=== PATIENT | male | born 1990 | race Caucasian/White ===

== ENCOUNTER 2017-02-22 15:47 | Emergency (ER) | payer MEDICAID ==
--- NOTE | 2017-02-22 16:07 | ED Physician Chart ---
ED Chief Complaint/HPI - Patient Information Date Seen:: 02/22/17 Time Seen:: 16:55 Chief Complaint:: Chest pain for 2 days. History of Present Illness:: Pt came by private auto because of onset of R sided chest pain for 2 days. Pain is characterized as intermittent, sharp, localized. Pain has become constant since about 4 am today. No known injury or trauma. No dyspnea. No cough. No palpitation. No lightheadedness. No syncope. Chest pain can be aggravated with deep inspiration or chest wall movement. Pt does not recall any chest injury. Pt is physically active and has no physical limitation. Allergies:: Allergies Allergy/AdvReac Type Severity Reaction Status Date / Time No Known Allergies Allergy Verified 02/22/17 15:56 Vitals:: Vital Signs - 8 hr 02/22/17 15:57 Temp 98.6 F HR 89 RR 18 BP 123/76 O2 Sat % 98 Historian:: Patient Family MD/PCP:: Unknown LMP:: N/A Review:: Nurse's Note Reviewed ED Review of Systems - Review of Systems General/Constitutional: No fever, No weight loss, No weakness, No edema, No loss of appetite Skin: No rash, No bruising Head: No headache, No light-headedness Eyes: No loss of vision, No pain, No diplopia ENT: No earache, No nasal drainage, No sore throat Neck: No neck pain, No swelling, No thyromegaly, No stiffness, No mass noted Cardio Vascular: Chest pain (more consistent with noncardiac in etiology.), No palpitations, No edema Pulmonary: No SOB, No cough, No wheezing GI: No nausea, No vomiting, No diarrhea, No pain G/U: No dysuria, No frequency, No hematuria Musculoskeletal: Other (chest wall pain.) Psychiatric: No prior psych history Hematopoietic: Bruising Allergic/Immuno: No urticaria, No angioedema Neurological: No syncope, No focal symptoms, No weakness, No paresthesia, No headache, No dizziness, No confusion ED Past Medical History - Past Medical History Past Medical History: No significant medical hx Family History: Heart disease (father), Diabetes Melitus (father), HTN (father) Social History: Non Smoker, Alcohol (occasional), No Drug Use, , Employed (safety security officer.), Other (lives with his significant other.) Family Medical History - Family Member Mother History Unknown: Yes ED Physical Exam - Physical Examination General/Constitutional: Awake, Well-developed, well-nourished, Alert, No distress, GCS 15, Non-toxic appearing, Ambulatory Other Gen/Cons comments:: Breathes comfortably, speaks clearly, and interacts normlly Head: Atraumatic Eyes: Lids, conjuctiva normal, PERRL, EOMI Skin: Nl inspection, No rash, No skin lesions, No ecchymosis, Well hydrated, No lymphadenopathy ENMT: External ears, nose nl, Nasal exam nl, Lips, teeth, gums nl, Oropharynx nl Neck: Nontender, Full ROM w/o pain, No JVD, No nuchal rigidity, No mass, No stridor Respiratory: Nl effort/Exclusion, Clear to Auscultation, No Wheeze/Rhonchi/Rales Cardio Vascular: RRR, No murmur, gallop, rubs, NL S1 S2 Other Cardio Vascular comments:: Chest wall: Reproducible tenderness with palpation at R lower parasternal region at the costosternal junctures. Pt states that it is exactly the same pain that he has experienced. No crepitus, erythema, swelling or open wound. GI: No tenderness/rebounding/guarding, No organomegaly, No hernia, Normal BS's, Nondistended, No McBurney tenderness Extremities: No edema Neuro/Psych: Alert/oriented (oriented x 3), Mood normal, Normal gait, No focal deficits ED Labs/Radiology/EKG Results - Lab Results Results: Laboratory Tests 02/22/17 02/22/17 02/22/17 16:25 16:25 16:25 WBC 8.1 RBC 4.65 Hgb 14.1 Hct 40.7 L MCV 87.5 MCH 30.3 H MCHC Differential 34.7 RDW 14.0 Plt Count 183 MPV 8.1 Neutrophils % 58.5 Lymphocytes % 29.4 Monocytes % 11.4 H Eosinophils % 0.7 Basophils % 0.0 PT 9.8 INR 0.94 PTT (Actin FS) 22.8 L Sodium 137 Potassium 3.6 Chloride 105 Carbon Dioxide 27.2 Anion Gap 8.4 BUN 21 Creatinine 1.0 Est GFR ( Amer) > 60.0 Est GFR (Non-Af Amer) > 60.0 BUN/Creatinine Ratio 21.0 Glucose 86 Calcium 8.9 Total Bilirubin 0.4 AST 20 ALT 14 Alkaline Phosphatase 61 Creatine Kinase 196 Troponin I Total Protein 6.9 Albumin 4.2 Globulin 2.7 Albumin/Globulin Ratio 1.6 02/22/17 16:25 WBC RBC Hgb Hct MCV MCH MCHC Differential RDW Plt Count MPV Neutrophils % Lymphocytes % Monocytes % Eosinophils % Basophils % PT INR PTT (Actin FS) Sodium Potassium Chloride Carbon Dioxide Anion Gap BUN Creatinine Est GFR ( Amer) Est GFR (Non-Af Amer) BUN/Creatinine Ratio Glucose Calcium Total Bilirubin AST ALT Alkaline Phosphatase Creatine Kinase Troponin I 0.01 Total Protein Albumin Globulin Albumin/Globulin Ratio - Radiology Results Results: PCXR: Based on my interpretation, NAD. Official report is pending. - EKG Interpretations EKG Time:: 17:55 Rate & Rhythm: NSR with VR 86 Comments:: NSSTT changes. ED Septic Shock - . Is Septic Shock (SBP<90, OR Lactate>4 mmol\L) present?: No - <6hrs of presentation: Vital Signs: Vital Signs - 8 hr 02/22/17 15:57 Temp 98.6 F HR 89 RR 18 BP 123/76 O2 Sat % 98 ED Reassessment (Disposition) - Reassessment Reassessment:: 1830 Pt has been repeatedly evaluated. Pt feels much better and does not need more pain control. Lab, EKG, and CXR findings have been reviewed with pt. Pt requests to go home now and does not want further observation/management in hospital. Aftercare instructions have been given. Reassessment Condition:: Improved - Diagnosis Diagnosis:: Noncardiac right sided chest wall pain due to costochondritis, stable and improved. - Aftercare/Follow up Instructions Aftercare/Follow-Up Instructions:: Refer to Discharge Instructions Notes:: Avoid activities that increase chest wall motion Motrin 200 mg tab 4 tabs po q8h prn noncardiac chest pain, not to take first dose at least 6 hours after Toradol was given here. May also take Tylenol 500 mg tab one tab po q6h prn pain. F/U with Dr. Rogers or PCP of pt's choice in 1-2 days for recheck. Return to ER immediately if condition worsens or if any further questions/problems. Medication Prescribed:: None - Patient Disposition Discharge/Transfer:: Home Time:: 18:40 Condition at Disposition:: Stable, Improved ED Discharge Plan - Patient Disposition Admit/Discharge/Transfer: PT DISCHARGED HOME Condition at Disposition: Stable Instructions: Costochondritis, [id number] Accepting Physician: Bj Rogers [Active] - 1-3 Days
[2017-02-22 16:31] LABS: % EOSINOPHILS 0.7 % (0.0-5.0); % LYMPHOCYTES 29.4 % (20.0-50.0); % MONOCYTES 11.4 % (2.0-10.0); % NEUTROPHILS 58.5 % (40.0-80.0); HEMATOCRIT 40.7 % (41.0-60); HEMOGLOBIN 14.1 gm/dL (12-16); MEAN CELL VOLUME 87.5 fl (80-99); MEAN CORPUSCULAR HEMOGLOBIN 30.3 pg (26.0-30.0); MEAN CORPUSCULAR HGB CONC 34.7 pg (28.0-36.0); MEAN PLATELET VOLUME 8.1 fl; NEUTROPHILE ABSOLUTE 4.7 Th/cmm (1.8-8.0); PLATELET COUNT 183 Th/cmm (150-400); RED BLOOD COUNT 4.65 Mil/cmm (4.30-5.70); WHITE BLOOD COUNT 8.1 Th/cmm (4.8-10.8)
[2017-02-22 16:44] LABS: INR 0.94 (0.5-1.4); PROTHROMBIN TIME (TEST) 9.8 SECONDS (9.5-11.5)
[2017-02-22 16:49] LABS: ALB/GLOB RATIO 1.6 (1.0-1.8); ALKALINE PHOSPHATASE 61 U/L (34-104); ANION GAP 8.4 (7.0-16.0); BILIRUBIN,TOTAL 0.4 mg/dL (0.3-1.0); BUN - UREA NITROGEN 21 mg/dL (7-25); CALCIUM SERUM 8.9 mg/dL (8.6-10.3); CARBON DIOXIDE 27.2 mEq/L (21.0-31.0); CHLORIDE 105 mEq/L (98-107); GLUCOSE 86 mg/dL (70-105); POTASSIUM SERUM 3.6 mEq/L (3.5-5.1); SGOT 20 U/L (13-39); SGPT/ALT 14 U/L (7-52); SODIUM SERUM 137 mEq/L (136-145)
--- NOTE | 2017-02-23 07:08 | Diagnostic Imaging Report ---
Portable chest x-ray Time: 1708 History: Chest pain Allowing for portable technique the heart size is normal. No focal pulmonary parenchymal processes. No hilar or mediastinal abnormalities. Impression: No acute abnormalities.
== END 2017-02-22 18:45 | disposition home or self-care (01) ==
LOC: ER 15:47
DX: R07.89 Other chest pain (principal)
CPT/HCPCS: 99285; 96372; 93005; 71010; 84484; 36415; 85025; 85610; 82550; 80053; J1885